=== PATIENT | male | born 1945 | race Caucasian/White ===

== ENCOUNTER 2018-11-21 09:17 | Inpatient (IN) | payer MEDICARE ==
[~2018-11-21] VITALS: Ht 177.8 cm; Wt 81.7 kg
--- NOTE | 2018-11-21 09:25 | NUR ---
STELLA RN: QUANG BACA CONTACTED FOR THIS PATIENT. BECK SIGALA SPEAK WITH PATIENT.
[2018-11-21] MEDS ORDERED: SODIUM CHLORIDE 0.9% 1,000ML IVBOLUS ONE ×2 (09:30→13:00)
[2018-11-21] MEDS ORDERED: SODIUM CHLORIDE FLUSH 10ML SYR IVF ONE ×2 (09:30→11:00)
[2018-11-21] MEDS ORDERED: CEFAZOLIN PMX 1GM/50ML 50 ML IVPB ONE (09:30)
--- NOTE | 2018-11-21 09:35 | NUR ---
REFERRAL #[id number] WITH DNW
--- NOTE | 2018-11-21 09:44 | NUR ---
Pt BIB EMS from home where pt was found down in partially in shower. Last known well tuesday. Pt with GCS 3, pupils fixed, dilated, gags on breathing tube occasionally but otherside no movement. Pt intubated in field with no meds. IO in place on arrival. Pt cool, clammy. Large wound to R lopez. ETCo2 20-30 by EMS.
--- NOTE | 2018-11-21 09:44 | NUR ---
Pt to CT
[2018-11-21 09:49] LABS: BASOPHILS # (AUTO) 0.02 x10^3/uL (0-0.1); BASOPHILS % (AUTO) 0 % (0-1); EOSINOPHILS # (AUTO) 0.02 x10^3/uL (0-0.4); EOSINOPHILS % (AUTO) 0 % (1-7); LYMPHOCYTES % (AUTO) 19 % (22-44); MD NO; MEAN CORPUSCULAR HEMOGLOBIN 30.1 pg (27.5-34.5); MEAN CORPUSCULAR HGB CONC 33.1 g/dL (33.2-36.2); MEAN CORPUSCULAR VOLUME 90.9 fL (81-97); MEAN PLATELET VOLUME 8.1 fL (7.4-10.4); MONOCYTES # (AUTO) 1.01 x10^3/uL (0.2-0.8); MONOCYTES % (AUTO) 14 % (2-9); NEUTROPHILS % (AUTO) 67 % (42-75); PLATELET COUNT 215 x10^3/uL (130-400); RED BLOOD COUNT 7.07 x10^6/uL (4.38-5.82); RED CELL DISTRIBUTION WIDTH 15.6 % (9.4-14.8)
--- NOTE | 2018-11-21 09:49 | NUR ---
Pt back from CT
--- NOTE | 2018-11-21 09:58 | NUR ---
Pt arrives with ET tube in place. 7.5 24mm at lip. A/C 14, TV 550, 100%, PEEP 5.
[2018-11-21 09:59] LABS: INTERNATIONAL NORMALIZED RATIO 1.25 (0.93-1.1); PROTHROMBIN TIME 13.1 Seconds (9.6-11.5)
[2018-11-21] MEDS ORDERED: PLEASE ENTER ALLERGIES MC SCH (10:00)
[2018-11-21] MEDS ORDERED: PLEASE ENTER HEIGHT AND WEIGHT MC SCH (10:00)
[2018-11-21 10:05] LABS: ALANINE AMINOTRANSFERASE 86 U/L (12-78); ALBUMIN 3.3 g/dL (3.4-5.0); ANION GAP 8 mmol/L (5-15); CALCIUM 9.6 mg/dL (8.5-10.1); CHLORIDE 105 mmol/L (98-107); CREATININE 1.22 mg/dL (0.7-1.3)
[2018-11-21 10:06] LABS: SALICYLATE LEVEL < 1.7 mg/dL (2.8-20.0)
[2018-11-21 10:07] LABS: ALKALINE PHOSPHATASE 116 U/L (45-117); BILIRUBIN,TOTAL 0.7 mg/dL (0.2-1.0); TOTAL PROTEIN 7.4 g/dL (6.4-8.2); TROPONIN I 0.194 ng/mL (0.000-0.045)
[2018-11-21 10:11] LABS: ACETAMINOPHEN < 2 mcg/mL (10-30)
--- NOTE | 2018-11-21 10:14 | NUR ---
RT suctioned 50ml of dark brown red liquid from ET tube.
--- NOTE | 2018-11-21 10:17 | NUR ---
OG placed with 500ml brown red liquid removed.
--- NOTE | 2018-11-21 10:27 | NUR ---
REPORT RECEIVED FROM JU MENDEZ. ASSUMED CARE OF PT. THIS IS A 73 YO MALE WHO WAS LAST SEEN WELL ON TUESDAY. PT APPARENTLY EMAILED SOMEONE ON TUESDAY. PT WITHDRAWS TO PAIN. GCS 4. PT'S PUPILS FIXED AND DIALATED. PT COOL TO TOUCH. WARMED IV FLUIDS INFUSING. PT INTUBATED. NAD NOTED WITH INTUBATION AT THIS TIME. PT ON CONT BP, CARDIAC AND O2 MONITORS. 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 WILL CONT TO MONITOR PT.
[2018-11-21 10:31] LABS: CREATINE KINASE, TOTAL 5054 U/L (39-308)
--- NOTE | 2018-11-21 10:57 | NUR ---
REPORT TO JU PALAFOX AND RODGER.
--- NOTE | 2018-11-21 11:01 | NUR ---
MELINDA CLINTON NOTIFIED THAT PT'S HR HAS CONSISTENTLY BEEN IN THE 40'S AND DECREASED BP OF 79/38. MELINDA CLINTON AWARE. NO NEW ORDERS RECEIVED AT THIS TIME. MELINDA CLINTON CONSULTING WITH NEURO AND ADMITTING MD. NO CHANGE IN NEURO STATUS OF PT. PT CONT TO WITHRDRAW TO PAIN. WILL CONT TO MONITOR PT.
[2018-11-21] MEDS ORDERED: ATROPINE SYRINGE 0.1 MG/ML, 10ML ONE (11:40)
[2018-11-21] MEDS ORDERED: LIDOCAINE-MPF 1%, 2ML ONE (11:56)
[2018-11-21] MEDS ORDERED: ATROPINE 1 MG/ML, 1ML IVPush PRN (12:00)
[2018-11-21] MEDS ORDERED: DOPAMINE/D5W PMX 250 ML IV PRN ×2 (12:00→12:46)
[2018-11-21] MEDS ORDERED: ATROPINE SYRINGE 0.1 MG/ML, 10ML IVPush PRN (12:00)
[2018-11-21] MEDS ORDERED: NOREPINEPHRINE 4 MG in SODIUM CHLORIDE 0.9% 246 ML IV PRN (12:46)
[2018-11-21] MEDS ORDERED: PROPOFOL 100 ML IV PRN (12:46)
[2018-11-21] MEDS ORDERED: PHARMACY MAY ADJ FOR RENAL FX MC SCH (13:00)
[2018-11-21] MEDS: LINEZOLID PMX 600MG/300ML 300 ML IV SCH ×2 (13:00→16:10)
[2018-11-21] MEDS ORDERED: SODIUM CHLORIDE 3% 500 ML IV PRN (13:00)
[2018-11-21] MEDS ORDERED: FENTANYL PF 100 MCG/2ML IVPush PRN (13:00)
[2018-11-21] MEDS ORDERED: LIDOCAINE-MPF 1%, 2ML ENDO PRN (13:00)
[2018-11-21] MEDS: ALBUTEROL/IPRATROPIUM 2.5MG/0.5MG, 3 ML INLINE SCH ×3 (13:00→22:11)
[2018-11-21 13:30] LABS: ANION GAP 10 mmol/L (5-15); CALCIUM 7.8 mg/dL (8.5-10.1); CHLORIDE 113 mmol/L (98-107); CREATININE 0.82 mg/dL (0.7-1.3); TRIGLYCERIDES 53 mg/dL (50-200)
[2018-11-21 13:31] LABS: ACETAMINOPHEN 5 mcg/mL (10-30)
[2018-11-21 13:33] LABS: TROPONIN I 0.281 ng/mL (0.000-0.045)
[2018-11-21 13:36] LABS: BASOPHILS # (AUTO) 0.01 x10^3/uL (0-0.1); BASOPHILS % (AUTO) 0 % (0-1); EOSINOPHILS # (AUTO) 0.03 x10^3/uL (0-0.4); EOSINOPHILS % (AUTO) 0 % (1-7); LYMPHOCYTES % (AUTO) 18 % (22-44); MD NO; MEAN CORPUSCULAR HEMOGLOBIN 30.7 pg (27.5-34.5); MEAN CORPUSCULAR HGB CONC 34.5 g/dL (33.2-36.2); MEAN CORPUSCULAR VOLUME 88.9 fL (81-97); MEAN PLATELET VOLUME 7.9 fL (7.4-10.4); MONOCYTES # (AUTO) 1.14 x10^3/uL (0.2-0.8); MONOCYTES % (AUTO) 17 % (2-9); NEUTROPHILS # (AUTO) 4.46 x10^3/uL (1.8-6.8); NEUTROPHILS % (AUTO) 65 % (42-75); PLATELET COUNT 190 x10^3/uL (130-400); RED BLOOD COUNT 5.96 x10^6/uL (4.38-5.82); RED CELL DISTRIBUTION WIDTH 15.2 % (9.4-14.8)
[2018-11-21 13:45] LABS: SALICYLATE LEVEL < 1.7 mg/dL (2.8-20.0)
[2018-11-21 14:11] LABS: AMPHETAMINE SCREEN, URINE Negative (Negative); BARBITURATE SCREEN, URINE Negative (Negative); BENZODIAZEPINE SCREEN, URINE Negative (Negative); CANNABINOID SCREEN, URINE Negative (Negative); COCAINE SCREEN, URINE Negative (Negative); METHADONE SCREEN, URINE Negative (Negative); OPIATE SCREEN, URINE Negative (Negative)
[2018-11-21] MEDS ORDERED: POTASSIUM CHLORIDE 30 MEQ in SODIUM CHLORIDE 0.9% 100 ML IV ONE (15:00)
[2018-11-21] MEDS ORDERED: LEVETIRACETAM 1,000 MG in SODIUM CHLORIDE 0.9% 100 ML IV ONE (15:00)
[2018-11-21] MEDS ORDERED: POTASSIUM CHLORIDE 40 MEQ in SODIUM CHLORIDE 0.9% 100 ML IV ONE (15:00)
[2018-11-21] MEDS: KSCALE TO 4.0 IV SCH ×2 (15:00→21:00)
[2018-11-21] MEDS: PIPERACILLIN/TAZO/PMX 3.375GM 50 ML IV SCH ×2 (15:20→20:35)
[2018-11-21] MEDS: SODIUM CHLORIDE 0.9% 1,000 ML IV SCH ×2 (15:22→23:16)
[2018-11-21 15:28] LABS: MICROSCOPIC INDICATED
[2018-11-21] MEDS: MANNITOL 0.25 GM/ML, 50ML IVPush SCH ×2 (15:50→21:52)
[2018-11-21 16:03] LABS: CULTURE INDICATED? NO
[2018-11-21 20:43] LABS: TROPONIN I 0.258 ng/mL (0.000-0.045)
[2018-11-21] MEDS ORDERED: POTASSIUM CHLORIDE PMX 100 ML IV ONE (22:00)
[2018-11-22] MEDS: LINEZOLID PMX 600MG/300ML 300 ML IV SCH ×2 (01:45→17:42)
[2018-11-22] MEDS: ALBUTEROL/IPRATROPIUM 2.5MG/0.5MG, 3 ML INLINE SCH ×6 (02:15→22:18)
[2018-11-22] MEDS: KSCALE TO 4.0 IV SCH ×4 (03:00→21:00)
[2018-11-22] MEDS: PIPERACILLIN/TAZO/PMX 3.375GM 50 ML IV SCH ×4 (03:28→21:12)
[2018-11-22] MEDS: LEVETIRACETAM 500 MG in SODIUM CHLORIDE 0.9% 100 ML IV SCH ×2 (03:45→17:38)
[2018-11-22] MEDS: MANNITOL 0.25 GM/ML, 50ML IVPush SCH (03:50)
[2018-11-22] MEDS ORDERED: POTASSIUM CHLORIDE PMX 100 ML IV ONE ×2 (04:00→22:30)
[2018-11-22 04:15] VITALS: BP 112/44
[2018-11-22 05:31] LABS: BASOPHILS # (AUTO) 0.01 x10^3/uL (0-0.1); BASOPHILS % (AUTO) 0 % (0-1); EOSINOPHILS % (AUTO) 0 % (1-7); LYMPHOCYTES # (AUTO) 0.72 x10^3/uL (1-3.4); LYMPHOCYTES % (AUTO) 14 % (22-44); MD NO; MEAN CORPUSCULAR HGB CONC 34.4 g/dL (33.2-36.2); MEAN PLATELET VOLUME 8.2 fL (7.4-10.4); MONOCYTES # (AUTO) 0.81 x10^3/uL (0.2-0.8); MONOCYTES % (AUTO) 15 % (2-9); NEUTROPHILS # (AUTO) 3.83 x10^3/uL (1.8-6.8); NEUTROPHILS % (AUTO) 71 % (42-75); PLATELET COUNT 195 x10^3/uL (130-400); RED BLOOD COUNT 5.54 x10^6/uL (4.38-5.82); RED CELL DISTRIBUTION WIDTH 15.1 % (9.4-14.8)
[2018-11-22 05:38] LABS: CHLORIDE 112 mmol/L (98-107)
[2018-11-22 05:57] LABS: ALANINE AMINOTRANSFERASE 65 U/L (12-78); ALBUMIN 2.1 g/dL (3.4-5.0); ALKALINE PHOSPHATASE 70 U/L (45-117); ANION GAP 10 mmol/L (5-15); CALCIUM 7.8 mg/dL (8.5-10.1); CREATINE KINASE, TOTAL 1563 U/L (39-308); CREATININE 0.83 mg/dL (0.7-1.3); TOTAL PROTEIN 4.9 g/dL (6.4-8.2)
[2018-11-22] MEDS ORDERED: MAGNESIUM SULFATE PMX 2GM/50ML 50 ML IV ONE (07:30)
[2018-11-22] MEDS: PANTOPRAZOLE 40 MG IV IVPush SCH (09:19)
[2018-11-22] MEDS: NOREPINEPHRINE 4 MG in SODIUM CHLORIDE 0.9% 246 ML IV PRN ×3 (10:07→19:27)
[2018-11-22] MEDS ORDERED: SODIUM CHLORIDE 3% 500 ML IV SCH (10:30)
[2018-11-22 12:17] LABS: ANION GAP 7 mmol/L (5-15); CALCIUM 8.5 mg/dL (8.5-10.1); CHLORIDE 113 mmol/L (98-107); CREATININE 1.13 mg/dL (0.7-1.3)
[2018-11-22] MEDS ORDERED: EPINEPHRINE 1 MG/ML, 1ML ONE (16:47)
[2018-11-23] MEDS: LINEZOLID PMX 600MG/300ML 300 ML IV SCH (00:35)
[2018-11-23] MEDS: NOREPINEPHRINE 4 MG in SODIUM CHLORIDE 0.9% 246 ML IV PRN ×2 (01:30→11:34)
[2018-11-23] MEDS: PIPERACILLIN/TAZO/PMX 3.375GM 50 ML IV SCH ×2 (01:30→08:03)
[2018-11-23] MEDS: ALBUTEROL/IPRATROPIUM 2.5MG/0.5MG, 3 ML INLINE SCH ×3 (02:10→10:47)
[2018-11-23] MEDS: KSCALE TO 4.0 IV SCH ×2 (03:00→09:00)
[2018-11-23] MEDS: LEVETIRACETAM 500 MG in SODIUM CHLORIDE 0.9% 100 ML IV SCH (03:36)
[2018-11-23 03:45] LABS: BASOPHILS # (AUTO) 0.03 x10^3/uL (0-0.1); BASOPHILS % (AUTO) 0 % (0-1); EOSINOPHILS # (AUTO) 0.01 x10^3/uL (0-0.4); EOSINOPHILS % (AUTO) 0 % (1-7); LYMPHOCYTES % (AUTO) 24 % (22-44); MD NO; MEAN CORPUSCULAR HEMOGLOBIN 30.6 pg (27.5-34.5); MEAN CORPUSCULAR HGB CONC 34.1 g/dL (33.2-36.2); MEAN CORPUSCULAR VOLUME 89.5 fL (81-97); MEAN PLATELET VOLUME 8.1 fL (7.4-10.4); MONOCYTES # (AUTO) 1.17 x10^3/uL (0.2-0.8); MONOCYTES % (AUTO) 11 % (2-9); NEUTROPHILS # (AUTO) 7.15 x10^3/uL (1.8-6.8); NEUTROPHILS % (AUTO) 65 % (42-75); PLATELET COUNT 214 x10^3/uL (130-400); RED BLOOD COUNT 5.34 x10^6/uL (4.38-5.82); RED CELL DISTRIBUTION WIDTH 15.6 % (9.4-14.8)
[2018-11-23 03:46] LABS: ANION GAP 6 mmol/L (5-15); CALCIUM 8.3 mg/dL (8.5-10.1); CHLORIDE 119 mmol/L (98-107)
[2018-11-23 03:49] LABS: ALANINE AMINOTRANSFERASE 55 U/L (12-78); ALKALINE PHOSPHATASE 76 U/L (45-117); BILIRUBIN,TOTAL 0.5 mg/dL (0.2-1.0); CREATINE KINASE, TOTAL 604 U/L (39-308); CREATININE 1.01 mg/dL (0.7-1.3); TOTAL PROTEIN 5.1 g/dL (6.4-8.2)
[2018-11-23 04:00] VITALS: BP 112/55
[2018-11-23] MEDS ORDERED: POTASSIUM CHLORIDE PMX 100 ML IV ONE (05:00)
[2018-11-23] MEDS: PANTOPRAZOLE 40 MG IV IVPush SCH (08:02)
[2018-11-23 11:13] LABS: ANION GAP 3 mmol/L (5-15); CALCIUM 8.6 mg/dL (8.5-10.1); CHLORIDE 128 mmol/L (98-107)
== END 2018-11-23 11:56 | disposition expired | DRG 208 ==
LOC: EDBD 09:17 → ED 10:52 → EDIP 10:57 → CCU 11:14
PROVIDERS: ADMIT Hospitalist; ATTEND Hospitalist
PROC: 0BH17EZ Insertion of Endotracheal Airway into Trachea, Via Natural or Artificial Opening (ICD-10-PCS; principal; 2018-11-21)
PROC: 5A1945Z Respiratory Ventilation, 24-96 Consecutive Hours (ICD-10-PCS; 2018-11-21)
PROC: 02HV33Z Insertion of Infusion Device into Superior Vena Cava, Percutaneous Approach (ICD-10-PCS; 2018-11-21)
PROC: 0D9670Z Drainage of Stomach with Drainage Device, Via Natural or Artificial Opening (ICD-10-PCS; 2018-11-21)
PROC: 0T9B70Z Drainage of Bladder with Drainage Device, Via Natural or Artificial Opening (ICD-10-PCS; 2018-11-21)
PROC: 04HY32Z Insertion of Monitoring Device into Lower Artery, Percutaneous Approach (ICD-10-PCS; 2018-11-21)
PROC: 03JY3ZZ Inspection of Upper Artery, Percutaneous Approach (ICD-10-PCS; 2018-11-21)
DX: J96.00 Acute respiratory failure, unspecified whether with hypoxia or hypercapnia (principal); I63.531 Cerebral infarction due to unspecified occlusion or stenosis of right posterior cerebral artery; I61.3 Nontraumatic intracerebral hemorrhage in brain stem; I63.511 Cerebral infarction due to unspecified occlusion or stenosis of right middle cerebral artery; G93.49 Other encephalopathy; M62.82 Rhabdomyolysis; Z99.11 Dependence on respirator [ventilator] status; Z60.2 Problems related to living alone; I95.9 Hypotension, unspecified; R40.2432 Glasgow coma scale score 3-8, at arrival to emergency department; K75.89 Other specified inflammatory liver diseases; L89.90 Pressure ulcer of unspecified site, unspecified stage; Z51.5 Encounter for palliative care
CPT/HCPCS: 36415; 36600; 51702; 70450; 71045; 80048; 80053; 80307; 80329; 81001; 82533; 82550; 82803; 83605; 83735; 84100; 84132; 84478; 84484; 85025; 85610; 85730; 87040; 87070; 87081; 87205; 93005; 94002; 94003; 94640; 95819; 99291; G0378; J0461; J1265; J1953; J2020; J2543; J3480; J7620; C9113; G0480; J2150; J3475; J7030; J7050

== ENCOUNTER 2018-11-23 11:22 | Inpatient (IN) | payer OTHER ==
[~2018-11-23] VITALS: Ht 178 cm; Wt 82.2 kg
[2018-11-23] MEDS ORDERED: PIPERACILLIN/TAZO 3.375 GM in SODIUM CHLORIDE 0.9% 50 ML IVPB SCH (13:30)
[2018-11-23] MEDS ORDERED: ALBUTEROL/IPRATROPIUM 2.5MG/0.5MG, 3 ML ONE (13:57)
[2018-11-23] MEDS ORDERED: PHENYLEPHRINE 20 MG in SODIUM CHLORIDE 0.9% 248 ML IV PRN (14:00)
[2018-11-23] MEDS ORDERED: LEVOTHYROXINE 100 MCG INJ IV ONE (14:00)
[2018-11-23] MEDS ORDERED: REGULAR INSULIN 62.5 UNITS in SODIUM CHLORIDE 0.9% 249.375 ML SQ-INSULIN SCH (14:00)
[2018-11-23] MEDS ORDERED: DOPAMINE/D5W PMX 250 ML IV PRN (14:00)
[2018-11-23] MEDS ORDERED: NOREPINEPHRINE 4 MG in SODIUM CHLORIDE 0.9% 246 ML IV PRN (14:00)
[2018-11-23] MEDS: PANTOPRAZOLE 40 MG IV IV SCH (14:00)
[2018-11-23] MEDS ORDERED: DEXTROSE 50%, 50ML SYRINGE IVPush PRN (14:00)
[2018-11-23] MEDS ORDERED: MAGNESIUM SULFATE PMX 4GM/100M 100 ML IVPB PRN (14:00)
[2018-11-23] MEDS ORDERED: MAGNESIUM SULFATE PMX 2GM/50ML 50 ML IVPB PRN (14:00)
[2018-11-23] MEDS ORDERED: POTASSIUM CHLORIDE 40 MEQ in SODIUM CHLORIDE 0.9% 100 ML IV PRN (14:00)
[2018-11-23] MEDS ORDERED: INSULIN REGULAR 100 UNITS/ML, 3ML VIAL IVPush PRN (14:00)
[2018-11-23 14:32] LABS: BASOPHILS # (AUTO) 0.05 x10^3/uL (0-0.1); BASOPHILS % (AUTO) 0 % (0-1); EOSINOPHILS # (AUTO) 0.03 x10^3/uL (0-0.4); EOSINOPHILS % (AUTO) 0 % (1-7); LYMPHOCYTES # (AUTO) 2.37 x10^3/uL (1-3.4); LYMPHOCYTES % (AUTO) 19 % (22-44); MD NO; MEAN CORPUSCULAR HEMOGLOBIN 30.7 pg (27.5-34.5); MEAN CORPUSCULAR HGB CONC 34.2 g/dL (33.2-36.2); MEAN CORPUSCULAR VOLUME 89.6 fL (81-97); MEAN PLATELET VOLUME 8.1 fL (7.4-10.4); MONOCYTES # (AUTO) 0.89 x10^3/uL (0.2-0.8); MONOCYTES % (AUTO) 7 % (2-9); NEUTROPHILS # (AUTO) 9.04 x10^3/uL (1.8-6.8); NEUTROPHILS % (AUTO) 73 % (42-75); PLATELET COUNT 199 x10^3/uL (130-400); RED BLOOD COUNT 5.42 x10^6/uL (4.38-5.82); RED CELL DISTRIBUTION WIDTH 16.1 % (9.4-14.8)
[2018-11-23 14:42] LABS: ANION GAP 6 mmol/L (5-15); BILIRUBIN, DIRECT 0.3 mg/dL (0.1-0.2); CHLORIDE 122 mmol/L (98-107); CREATININE 0.93 mg/dL (0.7-1.3)
[2018-11-23 14:44] LABS: ALKALINE PHOSPHATASE 80 U/L (45-117); BILIRUBIN,INDIRECT 0.5 mg/dL (0.0-2.0); BILIRUBIN,TOTAL 0.8 mg/dL (0.2-1.0); CREATINE KINASE, TOTAL 455 U/L (39-308); GAMMA GLUTAMYL TRANSPEPTIDASE 50 U/L (15-85); TOTAL PROTEIN 5.4 g/dL (6.4-8.2); TROPONIN I 0.227 ng/mL (0.000-0.045)
[2018-11-23 15:00] LABS: INTERNATIONAL NORMALIZED RATIO 1.03 (0.93-1.1); PROTHROMBIN TIME 10.9 Seconds (9.6-11.5)
[2018-11-23] MEDS ORDERED: LACTATED RINGERS 1,000 ML IVBOLUS ONE (15:00)
[2018-11-23] MEDS ORDERED: ALBUTEROL SULFATE 2.5MG/0.5ML NEB SCH (15:00)
[2018-11-23] MEDS: METHYLPREDNISOLONE SOD SUCC IV SCH (15:22)
[2018-11-23] MEDS: DEXTROSE 5% IV SCH (15:22)
[2018-11-23] MEDS: LEVOTHYROXINE 200 MCG in SODIUM CHLORIDE 0.9% 500 ML IV SCH (15:22)
[2018-11-23] MEDS: ARTIFICIAL TEARS 15 DROP/ML BOTTLE EACHEYE SCH ×6 (15:30→23:50)
[2018-11-23] MEDS: DEXTROSE 5% 1,000 ML IV SCH ×2 (16:28→23:50)
[2018-11-23 16:35] LABS: HEMOGLOBIN A1C 5.9 % (4.2-6.3)
[2018-11-23] MEDS ORDERED: METOPROLOL 1 MG/ML, 5ML IVPush ONE (17:30)
[2018-11-23] MEDS: PIPERACILLIN/TAZO 3.375 GM in SODIUM CHLORIDE 0.9% 50 ML IVPB SCH ×2 (17:36→22:39)
[2018-11-23] MEDS ORDERED: POTASSIUM PHOSPHATE 22 MEQ in SODIUM CHLORIDE 0.9% 500 ML IV ONE (18:00)
[2018-11-23] MEDS ORDERED: POTASSIUM PHOSPHATE IV ONE (18:00)
[2018-11-23] MEDS ORDERED: DEXTROSE 5% IV ONE ×2 (18:00→22:00)
[2018-11-23 20:05] LABS: BASOPHILS % (AUTO) 0 % (0-1); EOSINOPHILS # (AUTO) 0.01 x10^3/uL (0-0.4); EOSINOPHILS % (AUTO) 0 % (1-7); LYMPHOCYTES # (AUTO) 1.06 x10^3/uL (1-3.4); LYMPHOCYTES % (AUTO) 10 % (22-44); MD NO; MEAN CORPUSCULAR HEMOGLOBIN 30.6 pg (27.5-34.5); MEAN CORPUSCULAR VOLUME 90.3 fL (81-97); MEAN PLATELET VOLUME 8.4 fL (7.4-10.4); MONOCYTES # (AUTO) 0.37 x10^3/uL (0.2-0.8); MONOCYTES % (AUTO) 3 % (2-9); NEUTROPHILS # (AUTO) 9.52 x10^3/uL (1.8-6.8); NEUTROPHILS % (AUTO) 87 % (42-75); PLATELET COUNT 184 x10^3/uL (130-400); RED BLOOD COUNT 5.31 x10^6/uL (4.38-5.82); RED CELL DISTRIBUTION WIDTH 16.5 % (9.4-14.8)
[2018-11-23 20:14] LABS: INTERNATIONAL NORMALIZED RATIO 1.12 (0.93-1.1); PROTHROMBIN TIME 11.8 Seconds (9.6-11.5)
[2018-11-23 20:16] LABS: ALBUMIN 1.8 g/dL (3.4-5.0); ANION GAP 5 mmol/L (5-15); CALCIUM 8.6 mg/dL (8.5-10.1); CHLORIDE 124 mmol/L (98-107); GAMMA GLUTAMYL TRANSPEPTIDASE 95 U/L (15-85)
[2018-11-23 20:19] LABS: ALANINE AMINOTRANSFERASE 50 U/L (12-78); ALKALINE PHOSPHATASE 105 U/L (45-117); CREATINE KINASE, TOTAL 426 U/L (39-308); CREATININE 0.93 mg/dL (0.7-1.3); TOTAL PROTEIN 5.3 g/dL (6.4-8.2); TROPONIN I 0.178 ng/mL (0.000-0.045)
[2018-11-23] MEDS ORDERED: DEXTROSE 5% 500 ML IV ONE (21:30)
[2018-11-23] MEDS ORDERED: ACETYLCYSTEINE IV ONE (22:00)
[2018-11-24] MEDS ORDERED: DEXTROSE 5% 500 ML IV SCH
[2018-11-24] MEDS ORDERED: OMNIPAQUE 350 MG/ML, 100ML BOTTLE ONE (00:17)
[2018-11-24] MEDS ORDERED: VASOPRESSIN 100 UNIT in SODIUM CHLORIDE 0.9% 495 ML IV PRN (00:30)
[2018-11-24 00:40] LABS: MICROSCOPIC AUTO
[2018-11-24] MEDS: ARTIFICIAL TEARS 15 DROP/ML BOTTLE EACHEYE SCH ×12 (01:18→23:51)
[2018-11-24 02:13] LABS: BASOPHILS # (AUTO) 0.01 x10^3/uL (0-0.1); BASOPHILS % (AUTO) 0 % (0-1); EOSINOPHILS # (AUTO) 0.01 x10^3/uL (0-0.4); EOSINOPHILS % (AUTO) 0 % (1-7); LYMPHOCYTES # (AUTO) 0.74 x10^3/uL (1-3.4); LYMPHOCYTES % (AUTO) 6 % (22-44); MD NO; MEAN CORPUSCULAR HEMOGLOBIN 30.5 pg (27.5-34.5); MEAN CORPUSCULAR HGB CONC 33.7 g/dL (33.2-36.2); MEAN CORPUSCULAR VOLUME 90.3 fL (81-97); MEAN PLATELET VOLUME 8.2 fL (7.4-10.4); MONOCYTES # (AUTO) 0.45 x10^3/uL (0.2-0.8); MONOCYTES % (AUTO) 3 % (2-9); NEUTROPHILS # (AUTO) 12.32 x10^3/uL (1.8-6.8); NEUTROPHILS % (AUTO) 91 % (42-75); PLATELET COUNT 168 x10^3/uL (130-400); RED BLOOD COUNT 4.84 x10^6/uL (4.38-5.82); RED CELL DISTRIBUTION WIDTH 15.7 % (9.4-14.8)
[2018-11-24 02:22] LABS: INTERNATIONAL NORMALIZED RATIO 1.14 (0.93-1.1)
[2018-11-24 02:23] LABS: ALANINE AMINOTRANSFERASE 45 U/L (12-78); ALBUMIN 1.6 g/dL (3.4-5.0); ANION GAP 6 mmol/L (5-15); CALCIUM 8.4 mg/dL (8.5-10.1); CHLORIDE 119 mmol/L (98-107); CREATININE 0.98 mg/dL (0.7-1.3); GAMMA GLUTAMYL TRANSPEPTIDASE 103 U/L (15-85)
[2018-11-24 02:26] LABS: ALKALINE PHOSPHATASE 105 U/L (45-117); BILIRUBIN,TOTAL 0.7 mg/dL (0.2-1.0); CREATINE KINASE, TOTAL 298 U/L (39-308); TOTAL PROTEIN 4.9 g/dL (6.4-8.2)
[2018-11-24] MEDS ORDERED: REGULAR INSULIN 62.5 UNITS in SODIUM CHLORIDE 0.9% 249.375 ML IV SCH (03:08)
[2018-11-24] MEDS ORDERED: POTASSIUM PHOS 4.4 MEQ/ML IV ONE (05:00)
[2018-11-24] MEDS ORDERED: POTASSIUM PHOSPHATE 22 MEQ in SODIUM CHLORIDE 0.9% 500 ML IV ONE (05:00)
[2018-11-24] MEDS ORDERED: ALBUMIN HUMAN 25% 100 ML ONE (06:10)
[2018-11-24] MEDS: PIPERACILLIN/TAZO 3.375 GM in SODIUM CHLORIDE 0.9% 50 ML IVPB SCH ×3 (06:12→21:30)
[2018-11-24] MEDS ORDERED: ALBUMIN HUMAN 25% 100 ML IV ONE (06:30)
[2018-11-24] MEDS ORDERED: FUROSEMIDE 20 MG/2 ML IV ONE ×2 (08:00→15:00)
[2018-11-24 08:49] LABS: MEAN CORPUSCULAR HEMOGLOBIN 29.8 pg (27.5-34.5); MEAN CORPUSCULAR HGB CONC 33.2 g/dL (33.2-36.2); MEAN CORPUSCULAR VOLUME 89.8 fL (81-97); MEAN PLATELET VOLUME 8.2 fL (7.4-10.4); PLATELET COUNT 154 x10^3/uL (130-400); RED BLOOD COUNT 4.24 x10^6/uL (4.38-5.82)
[2018-11-24 08:58] LABS: INTERNATIONAL NORMALIZED RATIO 1.1 (0.93-1.1); PROTHROMBIN TIME 11.6 Seconds (9.6-11.5)
[2018-11-24 09:01] LABS: TROPONIN I 0.082 ng/mL (0.000-0.045)
[2018-11-24 09:04] LABS: ALANINE AMINOTRANSFERASE 38 U/L (12-78); ALBUMIN 2.1 g/dL (3.4-5.0); ANION GAP 5 mmol/L (5-15); CALCIUM 8.3 mg/dL (8.5-10.1); CHLORIDE 119 mmol/L (98-107); CREATININE 0.81 mg/dL (0.7-1.3); GAMMA GLUTAMYL TRANSPEPTIDASE 80 U/L (15-85)
[2018-11-24 09:08] LABS: ALKALINE PHOSPHATASE 91 U/L (45-117); BILIRUBIN,TOTAL 0.6 mg/dL (0.2-1.0); CREATINE KINASE, TOTAL 168 U/L (39-308); TOTAL PROTEIN 4.9 g/dL (6.4-8.2)
[2018-11-24 09:16] LABS: BASOPHILS # (AUTO) 0.01 x10^3/uL (0-0.1); BASOPHILS % (AUTO) 0 % (0-1); EOSINOPHILS # (AUTO) 0.01 x10^3/uL (0-0.4); EOSINOPHILS % (AUTO) 0 % (1-7); LYMPHOCYTES # (AUTO) 0.86 x10^3/uL (1-3.4); LYMPHOCYTES % (AUTO) 7 % (22-44); MD SCAN; MONOCYTES # (AUTO) 0.46 x10^3/uL (0.2-0.8); MONOCYTES % (AUTO) 4 % (2-9); NEUTROPHILS # (AUTO) 11.73 x10^3/uL (1.8-6.8); NEUTROPHILS % (AUTO) 90 % (42-75)
[2018-11-24] MEDS: ACETYLCYSTEINE 600 MG CAPSULE PO SCH ×2 (10:39→22:51)
[2018-11-24] MEDS: LEVOTHYROXINE 200 MCG in SODIUM CHLORIDE 0.9% 500 ML IV SCH (11:58)
[2018-11-24] MEDS: CALCIUM CHLORIDE 13.6 MEQ in SODIUM CHLORIDE 0.9% 50 ML IV PRN (11:58)
[2018-11-24] MEDS ORDERED: FILTER 0.22 MICRON (AMIODARONE) IV PRN (12:30)
[2018-11-24] MEDS ORDERED: HEPARIN wt. based STROKE protocol MC PRN ×2 (12:30)
[2018-11-24] MEDS ORDERED: AMIODARONE 900 MG in DEXTROSE 5% 482 ML IV PRN (13:00)
[2018-11-24] MEDS: HEPARIN 25,000 UNITS/500ML PMX 500 ML IV PRN (13:07)
[2018-11-24] MEDS: PANTOPRAZOLE 40 MG IV IV SCH (13:58)
[2018-11-24] MEDS: DEXTROSE 5% 1,000 ML IV SCH ×2 (13:58→21:15)
[2018-11-24 14:41] LABS: INTERNATIONAL NORMALIZED RATIO 1.06 (0.93-1.1); PROTHROMBIN TIME 11.2 Seconds (9.6-11.5)
[2018-11-24 14:49] LABS: TROPONIN I 0.062 ng/mL (0.000-0.045)
[2018-11-24 14:55] LABS: MD YES; MEAN CORPUSCULAR HEMOGLOBIN 29.7 pg (27.5-34.5); MEAN CORPUSCULAR HGB CONC 32.7 g/dL (33.2-36.2); MEAN CORPUSCULAR VOLUME 90.7 fL (81-97); PLATELET COUNT 162 x10^3/uL (130-400); RED BLOOD COUNT 4.52 x10^6/uL (4.38-5.82); RED CELL DISTRIBUTION WIDTH 16.3 % (9.4-14.8)
[2018-11-24 14:59] LABS: <PLATELET ESTIMATE> ADEQUATE; <RBC MORPHOLOGY> NORMAL; BAND#(MANUAL) 1.36 x10^3/uL; BANDS%(MANUAL) 7 % (0-7); LYMPH#(MANUAL) 1.16 x10^3/uL (1-3.4); LYMPHS% (MANUAL) 6 % (22-44); MONOS#(MANUAL) 0.78 x10^3/uL (0.3-2.7); MONOS% (MANUAL) 4 % (2-9); SEGS% (MANUAL) 83 % (42-75)
[2018-11-24 15:00] LABS: LARGE PLATELETS 1+
[2018-11-24] MEDS: METHYLPREDNISOLONE SOD SUCC IV SCH (15:31)
[2018-11-24] MEDS: DEXTROSE 5% IV SCH (15:31)
[2018-11-24 15:41] LABS: ALANINE AMINOTRANSFERASE 41 U/L (12-78); ALBUMIN 2.3 g/dL (3.4-5.0); ANION GAP 6 mmol/L (5-15); CALCIUM 9.3 mg/dL (8.5-10.1); CHLORIDE 118 mmol/L (98-107); CREATININE 0.89 mg/dL (0.7-1.3); GAMMA GLUTAMYL TRANSPEPTIDASE 77 U/L (15-85)
[2018-11-24 15:45] LABS: ALKALINE PHOSPHATASE 106 U/L (45-117); BILIRUBIN,TOTAL 0.7 mg/dL (0.2-1.0); CREATINE KINASE, TOTAL 149 U/L (39-308); TOTAL PROTEIN 5.5 g/dL (6.4-8.2)
[2018-11-24] MEDS ORDERED: METOPROLOL 1 MG/ML, 5ML ONE (16:17)
[2018-11-24] MEDS ORDERED: METOPROLOL 1 MG/ML, 5ML IVPush ONE (17:00)
[2018-11-24 20:12] LABS: MEAN CORPUSCULAR HEMOGLOBIN 30.8 pg (27.5-34.5); MEAN CORPUSCULAR VOLUME 90.6 fL (81-97); PLATELET COUNT 170 x10^3/uL (130-400); RED BLOOD COUNT 4.62 x10^6/uL (4.38-5.82)
[2018-11-24 20:26] LABS: ALANINE AMINOTRANSFERASE 43 U/L (12-78); ALBUMIN 2.2 g/dL (3.4-5.0); ANION GAP 3 mmol/L (5-15); CALCIUM 9.2 mg/dL (8.5-10.1); CHLORIDE 117 mmol/L (98-107); CREATININE 0.93 mg/dL (0.7-1.3); GAMMA GLUTAMYL TRANSPEPTIDASE 83 U/L (15-85)
[2018-11-24 20:29] LABS: ALKALINE PHOSPHATASE 120 U/L (45-117); BILIRUBIN,TOTAL 0.6 mg/dL (0.2-1.0); CREATINE KINASE, TOTAL 121 U/L (39-308); TOTAL PROTEIN 5.8 g/dL (6.4-8.2)
[2018-11-24] MEDS ORDERED: DESMOPRESSIN 4 MCG/ML IVPush ONE (20:30)
[2018-11-24 20:36] LABS: INTERNATIONAL NORMALIZED RATIO 1.07 (0.93-1.1); MD YES; PROTHROMBIN TIME 11.3 Seconds (9.6-11.5)
[2018-11-24 20:39] LABS: TROPONIN I 0.058 ng/mL (0.000-0.045)
[2018-11-24 20:40] LABS: <PLATELET ESTIMATE> ADEQUATE; <PLT MORPHOLOGY> NORMAL PLT MORPH; <RBC MORPHOLOGY> NORMAL; BAND#(MANUAL) 1.31 x10^3/uL; BANDS%(MANUAL) 6 % (0-7); LYMPH#(MANUAL) 2.41 x10^3/uL (1-3.4); LYMPHS% (MANUAL) 11 % (22-44); MONOS#(MANUAL) 1.31 x10^3/uL (0.3-2.7); MONOS% (MANUAL) 6 % (2-9); SEG#(MANUAL) 16.86 x10^3/uL (1.8-6.8); SEGS% (MANUAL) 77 % (42-75)
[2018-11-25] MEDS: ARTIFICIAL TEARS 15 DROP/ML BOTTLE EACHEYE SCH ×11 (01:01→20:47)
[2018-11-25 02:16] LABS: MEAN CORPUSCULAR HEMOGLOBIN 30.7 pg (27.5-34.5); MEAN CORPUSCULAR HGB CONC 34.2 g/dL (33.2-36.2); MEAN CORPUSCULAR VOLUME 89.8 fL (81-97); MEAN PLATELET VOLUME 7.8 fL (7.4-10.4); PLATELET COUNT 167 x10^3/uL (130-400); RED BLOOD COUNT 4.39 x10^6/uL (4.38-5.82); RED CELL DISTRIBUTION WIDTH 16.1 % (9.4-14.8)
[2018-11-25 02:26] LABS: INTERNATIONAL NORMALIZED RATIO 1.08 (0.93-1.1); PROTHROMBIN TIME 11.4 Seconds (9.6-11.5)
[2018-11-25 02:28] LABS: ALANINE AMINOTRANSFERASE 38 U/L (12-78); ALBUMIN 2.1 g/dL (3.4-5.0); ANION GAP 4 mmol/L (5-15); CALCIUM 8.8 mg/dL (8.5-10.1); CHLORIDE 116 mmol/L (98-107); CREATININE 0.83 mg/dL (0.7-1.3); GAMMA GLUTAMYL TRANSPEPTIDASE 83 U/L (15-85)
[2018-11-25 02:31] LABS: ALKALINE PHOSPHATASE 119 U/L (45-117); BILIRUBIN,TOTAL 0.6 mg/dL (0.2-1.0); CREATINE KINASE, TOTAL 84 U/L (39-308); TOTAL PROTEIN 5.4 g/dL (6.4-8.2)
[2018-11-25 02:41] LABS: MD YES
[2018-11-25 02:44] LABS: <RBC MORPHOLOGY> NORMAL; BAND#(MANUAL) 0.78 x10^3/uL; BANDS%(MANUAL) 4 % (0-7); LYMPH#(MANUAL) 1.55 x10^3/uL (1-3.4); LYMPHS% (MANUAL) 8 % (22-44); MONOS#(MANUAL) 0.58 x10^3/uL (0.3-2.7); MONOS% (MANUAL) 3 % (2-9); REACTIVE LYMPHS # (MANUAL) 0.97 x10^3/uL (0-0); REACTIVE LYMPHS % (MANUAL) 5 % (0-0); SEGS% (MANUAL) 80 % (42-75)
[2018-11-25 02:45] LABS: <PLATELET ESTIMATE> ADEQUATE; <PLT MORPHOLOGY> NORMAL PLT MORPH
[2018-11-25 02:51] LABS: TROPONIN I 0.073 ng/mL (0.000-0.045)
[2018-11-25] MEDS ORDERED: POTASSIUM PHOSPHATE 22 MEQ in SODIUM CHLORIDE 0.9% 500 ML IV ONE (03:30)
[2018-11-25] MEDS ORDERED: POTASSIUM CHLORIDE PMX 100 ML IV ONE ×2 (03:30→21:00)
[2018-11-25 03:31] LABS: MICROSCOPIC AUTO
[2018-11-25 03:33] LABS: CULTURE INDICATED? NO
[2018-11-25] MEDS ORDERED: HEPARIN 5,000 UNITS/ML, 1ML ONE (04:17)
[2018-11-25] MEDS: HEPARIN 5,000 UNITS/ML, 1ML IV PRN ×2 (04:26→09:00)
[2018-11-25] MEDS: LEVOTHYROXINE 200 MCG in SODIUM CHLORIDE 0.9% 500 ML IV SCH (05:30)
[2018-11-25] MEDS: PIPERACILLIN/TAZO 3.375 GM in SODIUM CHLORIDE 0.9% 50 ML IVPB SCH ×3 (05:43→20:31)
[2018-11-25] MEDS: DEXTROSE 5% 1,000 ML IV SCH ×2 (05:44→15:28)
[2018-11-25 07:55] LABS: MEAN CORPUSCULAR HEMOGLOBIN 29.7 pg (27.5-34.5); MEAN CORPUSCULAR HGB CONC 32.8 g/dL (33.2-36.2); MEAN CORPUSCULAR VOLUME 90.6 fL (81-97); MEAN PLATELET VOLUME 8.3 fL (7.4-10.4); PLATELET COUNT 153 x10^3/uL (130-400); RED BLOOD COUNT 4.36 x10^6/uL (4.38-5.82); RED CELL DISTRIBUTION WIDTH 15.7 % (9.4-14.8)
[2018-11-25 08:07] LABS: TROPONIN I 0.059 ng/mL (0.000-0.045)
[2018-11-25 08:10] LABS: INTERNATIONAL NORMALIZED RATIO 1.1 (0.93-1.1); PROTHROMBIN TIME 11.6 Seconds (9.6-11.5)
[2018-11-25 08:15] LABS: ALANINE AMINOTRANSFERASE 38 U/L (12-78); ALBUMIN 1.9 g/dL (3.4-5.0); ANION GAP 5 mmol/L (5-15); CALCIUM 8.7 mg/dL (8.5-10.1); CHLORIDE 114 mmol/L (98-107); CREATININE 0.71 mg/dL (0.7-1.3); GAMMA GLUTAMYL TRANSPEPTIDASE 81 U/L (15-85)
[2018-11-25 08:18] LABS: ALKALINE PHOSPHATASE 118 U/L (45-117); BILIRUBIN,TOTAL 1.2 mg/dL (0.2-1.0); CREATINE KINASE, TOTAL 73 U/L (39-308); TOTAL PROTEIN 5.4 g/dL (6.4-8.2)
[2018-11-25 08:53] LABS: MD SCAN
[2018-11-25 08:54] LABS: BASOPHILS % (AUTO) 0 % (0-1); EOSINOPHILS # (AUTO) 0.01 x10^3/uL (0-0.4); EOSINOPHILS % (AUTO) 0 % (1-7); LYMPHOCYTES # (AUTO) 1.22 x10^3/uL (1-3.4); LYMPHOCYTES % (AUTO) 7 % (22-44); MONOCYTES # (AUTO) 0.49 x10^3/uL (0.2-0.8); MONOCYTES % (AUTO) 3 % (2-9); NEUTROPHILS # (AUTO) 16.91 x10^3/uL (1.8-6.8); NEUTROPHILS % (AUTO) 91 % (42-75)
[2018-11-25] MEDS: ACETYLCYSTEINE 600 MG CAPSULE PO SCH ×2 (09:00→20:45)
[2018-11-25] MEDS: POTASSIUM CHLORIDE PMX 20MEQ/100 ML IVPB PRN ×2 (09:56→15:29)
[2018-11-25] MEDS: HEPARIN 25,000 UNITS/500ML PMX 500 ML IV PRN (13:57)
[2018-11-25] MEDS: METHYLPREDNISOLONE SOD SUCC IV SCH (14:00)
[2018-11-25] MEDS: PANTOPRAZOLE 40 MG IV IV SCH (14:00)
[2018-11-25] MEDS: DEXTROSE 5% IV SCH (14:00)
[2018-11-25 14:23] LABS: MEAN CORPUSCULAR HEMOGLOBIN 30.2 pg (27.5-34.5); MEAN CORPUSCULAR HGB CONC 33.3 g/dL (33.2-36.2); MEAN CORPUSCULAR VOLUME 90.7 fL (81-97); PLATELET COUNT 155 x10^3/uL (130-400); RED BLOOD COUNT 4.14 x10^6/uL (4.38-5.82); RED CELL DISTRIBUTION WIDTH 16.3 % (9.4-14.8)
[2018-11-25 14:31] LABS: ALANINE AMINOTRANSFERASE 35 U/L (12-78); ANION GAP 5 mmol/L (5-15); CALCIUM 8.9 mg/dL (8.5-10.1); CHLORIDE 113 mmol/L (98-107); CREATININE 0.61 mg/dL (0.7-1.3); GAMMA GLUTAMYL TRANSPEPTIDASE 68 U/L (15-85)
[2018-11-25 14:32] LABS: INTERNATIONAL NORMALIZED RATIO 1.04 (0.93-1.1)
[2018-11-25 14:35] LABS: ALKALINE PHOSPHATASE 114 U/L (45-117); BILIRUBIN,TOTAL 0.4 mg/dL (0.2-1.0); CREATINE KINASE, TOTAL 63 U/L (39-308); TOTAL PROTEIN 5.2 g/dL (6.4-8.2)
[2018-11-25 14:44] LABS: TROPONIN I 0.028 ng/mL (0.000-0.045)
[2018-11-25 15:07] LABS: BASOPHILS # (AUTO) 0.04 x10^3/uL (0-0.1); BASOPHILS % (AUTO) 0 % (0-1); EOSINOPHILS % (AUTO) 0 % (1-7); LYMPHOCYTES # (AUTO) 1.25 x10^3/uL (1-3.4); LYMPHOCYTES % (AUTO) 7 % (22-44); MD SCAN; MONOCYTES # (AUTO) 0.56 x10^3/uL (0.2-0.8); MONOCYTES % (AUTO) 3 % (2-9); NEUTROPHILS # (AUTO) 14.96 x10^3/uL (1.8-6.8); NEUTROPHILS % (AUTO) 89 % (42-75)
[2018-11-25] MEDS: CALCIUM CHLORIDE 13.6 MEQ in SODIUM CHLORIDE 0.9% 50 ML IV PRN (15:29)
[2018-11-25] MEDS ORDERED: FUROSEMIDE 20 MG/2 ML IV ONE (15:30)
[2018-11-25 18:57] LABS: BILIRUBIN, DIRECT 0.2 mg/dL (0.1-0.2); BILIRUBIN,INDIRECT 0.2 mg/dL (0.0-2.0); BILIRUBIN,TOTAL 0.4 mg/dL (0.2-1.0)
[2018-11-25 20:22] LABS: MICROSCOPIC AUTO
[2018-11-25 20:25] LABS: CULTURE INDICATED? YES
[2018-11-25 20:28] LABS: MEAN CORPUSCULAR HEMOGLOBIN 30.4 pg (27.5-34.5); MEAN CORPUSCULAR HGB CONC 33.3 g/dL (33.2-36.2); MEAN PLATELET VOLUME 8.4 fL (7.4-10.4); PLATELET COUNT 165 x10^3/uL (130-400); RED CELL DISTRIBUTION WIDTH 15.9 % (9.4-14.8)
[2018-11-25 20:33] LABS: ALANINE AMINOTRANSFERASE 38 U/L (12-78); ALBUMIN 2.1 g/dL (3.4-5.0); ANION GAP 6 mmol/L (5-15); CALCIUM 9.5 mg/dL (8.5-10.1); CHLORIDE 112 mmol/L (98-107); CREATININE 0.64 mg/dL (0.7-1.3); GAMMA GLUTAMYL TRANSPEPTIDASE 122 U/L (15-85); INTERNATIONAL NORMALIZED RATIO 1.02 (0.93-1.1); PROTHROMBIN TIME 10.8 Seconds (9.6-11.5)
[2018-11-25 20:37] LABS: ALKALINE PHOSPHATASE 161 U/L (45-117); BILIRUBIN,TOTAL 0.7 mg/dL (0.2-1.0); CREATINE KINASE, TOTAL 59 U/L (39-308); TOTAL PROTEIN 5.6 g/dL (6.4-8.2)
[2018-11-25 20:42] LABS: TROPONIN I 0.024 ng/mL (0.000-0.045)
[2018-11-25 20:57] LABS: BASOPHILS # (AUTO) 0.02 x10^3/uL (0-0.1); BASOPHILS % (AUTO) 0 % (0-1); EOSINOPHILS % (AUTO) 0 % (1-7); LYMPHOCYTES # (AUTO) 0.72 x10^3/uL (1-3.4); LYMPHOCYTES % (AUTO) 5 % (22-44); MD SCAN; MONOCYTES # (AUTO) 0.31 x10^3/uL (0.2-0.8); MONOCYTES % (AUTO) 2 % (2-9); NEUTROPHILS # (AUTO) 13.39 x10^3/uL (1.8-6.8); NEUTROPHILS % (AUTO) 93 % (42-75)
[2018-11-25] MEDS ORDERED: MANNITOL PMX 20% 0 ML ONE (22:28)
[2018-11-25] MEDS ORDERED: FUROSEMIDE 20 MG/2 ML ONE (22:28)
[2018-11-25] MEDS ORDERED: ROCURONIUM 10MG/ML,5ML ONE (22:52)
[2018-11-25] MEDS ORDERED: FENTANYL PF 250 MCG/5ML ONE (23:02)
[2018-11-25] MEDS ORDERED: DEXAMETHASONE 4 MG/ML, 5ML ONE (23:49)
[2018-11-25] MEDS ORDERED: INSULIN SINGLE DOSE, ER SQ-INSULIN ONE (23:49)
[2018-11-25] MEDS ORDERED: HEPARIN 1,000 UNITS/ML, 30ML ONE (23:49)
[2018-11-27 13:50] LABS: QUANTIFERON TB Ag1-NIL 0 (0.000-0.000)
== END 2018-11-26 05:06 | disposition expired | DRG 81 ==
LOC: CCU 11:56
PROC: 0T9B70Z Drainage of Bladder with Drainage Device, Via Natural or Artificial Opening (ICD-10-PCS; principal; 2018-11-24)
DX: X58.XXXA Exposure to other specified factors, initial encounter; S06.300A Unspecified focal traumatic brain injury without loss of consciousness, initial encounter; Z87.891 Personal history of nicotine dependence; Y93.89 Activity, other specified; Y92.89 Other specified places as the place of occurrence of the external cause; Y99.8 Other external cause status
CPT/HCPCS: 36415; 36600; 71045; 71270; 74178; 80051; 80053; 81001; 82040; 82150; 82247; 82248; 82330; 82550; 82552; 82565; 82803; 82947; 82962; 82977; 83036; 83605; 83690; 83735; 84075; 84100; 84155; 84450; 84484; 84520; 85025; 85520; 85610; 85730; 86480; 86850; 86900; 87040; 87070; 87086; 87102; 87205; 94003; G0378; J0132; J1100; J1644; J1815; J2543; J2930; J3010; J3480; J7070; P9047; Q9967; C9113; J1940; J3475; J7040; J7050; J7060; J7120